=== PATIENT | male | born 1960 | race African-American/Black ===

== ENCOUNTER 2017-04-10 14:14 | Inpatient (IN) | payer OTHER ==
--- NOTE | ~2017-04-10 | CR63 ---
[facility] A Service of [facility] RADIOLOGY TEXT RESULTS PATIENT: GLENDA BRYANT LOCATION: [facility] [id number] : [birth year] UNIT #: [id number] AGE: [address]: Dariel Goodson MD SEX: M ORDER DR: [id number] [facility] [address] [place], [place] [address] [id number] E MR#: [id number] Acc #: [id number] NAME: GLENDA BRYANT : 1960 SEX: M STUDY DATE/TIME: 04/10/2017 16:31 UNIT: DANA ROOM: STUDY DESCRIPTION: CR Chest 2 View Attending Physician: Mckayla Baugh M.D. Ordering Physician: Mckayla Baugh M.D. Primary Care Physician: No Primary Care Physician MEDICAL IMAGING REPORT This report is preliminary unless electronic signature is present EXAM PA and lateral chest. HISTORY Cough and shortness of air and chest pain for 3 days. FINDINGS Two views of the chest demonstrate mild patchy infiltrate in the inferior left lower lobe. This is nonspecific but pneumonia is not excluded and short-term followup chest x-ray is recommended. Remainder of the lungs are clear. No pleural effusions. The cardiac size and pulmonary vascularity are normal. Dictated by... Gonzalez Duffy M.D. THIS IS AN ELECTRONICALLY VERIFIED REPORT Gonzalez Duffy M.D. at 04/10/2017 11:11 PM BRYAN/handy TD: 04/10/2017 20:20 JOB #: [id number] MEDICAL IMAGING REPORT Page 1 of 1 COPY
--- NOTE | ~2017-04-10 | DS ---
Unit #: [id number] #: [id number] Patient: GLENDA BRYANT [id number] [place], [place] [address] [id number] I MR#: [id number] NAME: GLENDA BRYANT ROOM: 560 Age: 56 Sex: M Admission Date: 04/10/2017 : 1960 Discharge Date: 04/13/2017 Attending Physician: Attila Xiong M.D. Primary Care Physician: No Primary Care Physician DISCHARGE SUMMARY DIAGNOSIS ON ADMISSION Hyponatremia. DIAGNOSES ON DISCHARGE 1. Hyponatremia, improved. 2. Legionella pneumonia. 3. Type 2 diabetes mellitus. 4. History of renal stones. CONSULTATION Dr. Noonan in pulmonary consultation. DIAGNOSTIC STUDIES LABORATORY: Patient's creatinine is 0.8, sodium 132, potassium 4.8. AST 92, ALT 93. WBC 7.9, hemoglobin 14.6, platelet count 314,000. Patient's urine for legionella antigen was positive. TSH was 2.06. Hemoglobin A1c was 7.5. Procalcitonin was 0.76. Urine tox screen was positive for marijuana, benzodiazepines, and tricyclic antidepressant. IMAGING: CT scan of head did not reveal any acute intracranial abnormality. HOSPITAL COURSE A 56-year-old male was admitted to [facility] with hyponatremia. Details are as per admission H and P. Patient was seen by Dr. Noonan in consultation. Left lower lobe pneumonia: Patient's urine for antigen for legionella is positive. Patient was treated with antibiotics and is feeling much better now. Hyponatremia: It is likely secondary to alcohol abuse. Patient's sodium level is 132 now. It was 120 on admission. Polysubstance abuse: Patient was advised to follow up with [facility]. Today patient is comfortable, is not in any acute distress. Anxiously wants to go home. PHYSICAL EXAMINATION VITAL SIGNS: Patient's temperature is 98.8, pulse is 83 per minute, respiratory rate is 16 per minute, blood pressure is 172/94. HEENT: Revealed no conjunctival congestion. Sclerae nonicteric. NECK: Supple. Trachea is central. Unit #: [id number] #: [id number] Patient: GLENDA BRYANT RESPIRATORY: Revealed breath sounds equal bilaterally. No wheezes or crackles. HEART: Regular rate and rhythm. S1, S2. ABDOMEN: Soft, nontender. Bowel sounds are present in all four quadrants. NEUROLOGIC: The patient is alert to person, place, and time. Power is 5/5 bilaterally. Sensations are grossly intact. SKIN: Warm and dry. RECOMMENDATIONS ON DISCHARGE Condition is stable. Activity is as tolerated. MEDICATIONS 1. Levaquin 750 mg p.o. daily for 10 days. 2. Metformin 1000 mg p.o. b.i.d. Restart in three days. 3. Patient stated he was taking glyburide at home. He was advised to continue that dose. FOLLOWUP Patient is advised to follow up with primary care physician in one week and followup with Dr. Noonan as recommended. The plan was discussed in detail with patient who showed complete understanding. He is also advised to follow up with [facility]. The patient is advised to have a CBC and CMP done with primary care physician in one week with followup on LFTs. He was also provided smoking cessation education. Dictated by... Michelle House/tommy TD: 04/13/2017 16:52 JOB #: [id number] DISCHARGE SUMMARY Page 1 of 1 X Attila Xiong MD X DISCHARGE SUMMARY
--- NOTE | ~2017-04-10 | CO ---
Unit #: [id number] #: [id number] Patient: GLENDA BRYANT [id number] [address] [id number] I MR#: [id number] NAME: GLENDA BRYANT ROOM: 560 Age: 56 Sex: M Admission Date: 04/10/2017 : 1960 Attending Physician: Dariel Goodson M.D. Primary Care Physician: No Primary Care Physician CONSULTATION REPORT REASON FOR CONSULTATION Pneumonia. CHIEF COMPLAINT Not feeling well. 56-year-old male with a past medical history of diabetes, likely obstructive sleep apnea, alcohol abuse, smoker of half pack per day, presents with complaint of dry cough and not feeling well. Was diagnosed with pneumonia. I am seeing him at the bedside. He denies any headache. No back pain, no chest pain. PHYSICAL EXAMINATION VITAL SIGNS: Temperature 98, pulse 87, respirations 12, blood pressure is 123/75. NEUROLOGICAL: Awake, alert, oriented. No neuro deficit. HEENT: PERRLA. NECK: Supple. No JVD. CHEST: Bilateral air entry, bilateral mild rhonchi. GI: Nontender, soft. Bowel sounds positive. EXTREMITIES: No edema. SKIN: No rashes, no ulcers. LYMPHATIC: No lymphadenopathy. PAST MEDICAL HISTORY 1. Diabetes. 2. Chronic kidney stones. PAST SURGICAL HISTORY 1. Vasectomy. 2. Lithotripsy. SOCIAL HISTORY Positive for alcohol and smokes about one pack per day. FAMILY HISTORY None as per record. ALLERGIES No known drug allergies. DIAGNOSTIC STUDIES Unit #: [id number] #: [id number] Patient: GLENDA BRYANT Labs and imaging reviewed. ASSESSMENT AND PLAN 1. Left lower lobe pneumonia. 2. Hypernatremia. 3. Diabetes mellitus. 4. Likely obstructive sleep apnea. Continue patient on IV antibiotics. Get procalcitonin and urine for legionella and pneumococcal antigen. GI and DVT prophylaxis. The patient will be closely monitored. Will need a repeat CT chest in four weeks to document resolution. Will need outpatient sleep study as well. Thank you very much for this consultation. Dictated by... Michelle Banda TD: 04/11/2017 15:51 JOB #: [id number] CONSULTATION REPORT Page 1 of 1 X Machelle Noonan MD CONSULTATION REPORT
--- NOTE | ~2017-04-10 | CT57 ---
[facility] A Service of [facility] RADIOLOGY TEXT RESULTS PATIENT: GLENDA BRYANT LOCATION: [facility] 560-01 : [birth year] UNIT #: [id number] AGE: [address]: Dariel Goodson MD SEX: M ORDER DR: [id number] [facility] [address] [place], [place] [address] [id number] I MR#: [id number] Acc #: [id number] NAME: GLENDA BRYANT : 1960 SEX: M STUDY DATE/TIME: 04/10/2017 21:14 UNIT: [facility] ROOM: [facility] STUDY DESCRIPTION: CT Chest Wo Cont Attending Physician: Dariel Goodson M.D. Ordering Physician: Angus Kang M.D. Primary Care Physician: No Primary Care Physician MEDICAL IMAGING REPORT This report is preliminary unless electronic signature is present EXAM CT chest without contrast. HISTORY Generalized weakness and cough for 10 days. Left lower lobe infiltrate on chest x-ray yesterday. TECHNIQUE This CT exam was performed with one or more of the following radiation dose reduction techniques: automatic exposure control, adjustment of mA and/or kV according to patient size, and iterative reconstruction. FINDINGS CT chest without contrast demonstrates moderately extensive diffuse patchy airspace infiltrate in the left lower lobe, corresponding to infiltrate on chest x-ray earlier today. Although, nonspecific this could be due to pneumonia and correlation to the patient's history and symptoms is recommended and follow-up chest x-ray is suggested after assessment and treatment. No additional infiltrates. No effusions. No adenopathy. Normal caliber thoracic aorta. IMPRESSION 1. Moderately extensive diffuse airspace infiltrate in the left lower lobe corresponds to a similar finding on chest x-ray earlier today. Although, nonspecific, this could be due to pneumonia. 2. The remainder of the CT chest is negative. 3. Suggest short-term follow-up chest x-ray after appropriate assessment and treatment. Dictated by... Gonzalez Duffy M.D. [facility] A Service [facility] RADIOLOGY TEXT RESULTS PATIENT: GLENDA BRYANT LOCATION: B 560-01 : [birth year] UNIT #: [id number] AGE: [address]: Dariel Goodson MD SEX: M ORDER DR: THIS IS AN ELECTRONICALLY VERIFIED REPORT Gonzalez Duffy M.D. at 04/11/2017 11:47 AM BRYAN/handy TD: 04/11/2017 00:24 JOB #: [id number] MEDICAL IMAGING REPORT Page 1 of 1 COPY
--- NOTE | ~2017-04-10 | CT71 ---
[facility] A Service [facility] RADIOLOGY TEXT RESULTS PATIENT: GLENDA BRYANT LOCATION: [facility] : [birth year] UNIT #: [id number] AGE: [address]: Mckayla Baugh MD SEX: M ORDER DR: [id number] [facility]. [place], [place] [address] [id number] E MR#: [id number] Acc #: [id number] NAME: GLENDA BRYANT : 1960 SEX: M STUDY DATE/TIME: 04/10/2017 16:10 UNIT: [facility] ROOM: STUDY DESCRIPTION: CT Head Wo Contrast Attending Physician: Mckayla Baugh M.D. Ordering Physician: Mckayla Baugh M.D. MEDICAL IMAGING REPORT This report is preliminary unless electronic signature is present EXAM Head CT without HISTORY Weakness, confusion for 10 days. History of diabetes. TECHNIQUE Routine noncontrast head CT. This CT exam was performed with one or more of the following radiation dose reduction techniques: automatic exposure control, adjustment of mA and/or kV according to patient size, and iterative reconstruction. COMPARISON STUDIES There is no previous. FINDINGS There is no displaced calvarial fracture. The visualized mastoid air cells are clear. The visualized paranasal sinuses are clear. There is no evidence for acute intracranial hemorrhage or extraaxial fluid collection. The ventricles are normal in size and configuration. The marquez-white junction is relatively well-maintained. No acute cortical infarct is suspected. If there is clinical concern, follow-up imaging is recommended, preferably with MRI if the patient is a candidate. No intracranial mass effect. Basilar cisterns patent. IMPRESSION No acute intracranial abnormality but if there is clinical concern for acute CVA, follow-up imaging is recommended, preferably with MRI. Dictated by... Rose Ching M.D. [facility] A Service [facility] RADIOLOGY TEXT RESULTS PATIENT: GLENDA BRYANT LOCATION: [facility] : [birth year] UNIT #: [id number] AGE: [address]: Mckayla Baugh MD SEX: M ORDER DR: THIS IS AN ELECTRONICALLY VERIFIED REPORT Rose Ching M.D. at 04/10/2017 8:27 PM SAC/pcl TD: 04/10/2017 19:33 JOB #: [id number] MEDICAL IMAGING REPORT Page 1 of 1 COPY
--- NOTE | ~2017-04-10 | HP ---
Unit #: [id number] #: [id number] Patient: GLENDA BRYANT [id number] [address] [id number] I MR#: [id number] NAME: GLENDA BRYANT ROOM: 560 Age: 56 Sex: M Admission Date: 04/10/2017 : 1960 Attending Physician: Dariel Goodson M.D. Primary Care Physician: No Primary Care Physician HISTORY AND PHYSICAL CHIEF COMPLAINT Not feeling very well for 10 days. HISTORY OF PRESENT ILLNESS This is a 56-year-old gentleman who has a past medical history significant for history of diabetes and history of alcohol use. He presented to the emergency room with a chief complaint of not feeling very well for the past 10 days. He has some dry cough, but no fever, no chills, no nausea or vomiting. He said he just feels that he is not feeling good. He denies any other complaint. No headache. No slurred speech. No weakness. PAST MEDICAL HISTORY 1. History of diabetes. 2. History of kidney stones. PAST SURGICAL HISTORY 1. History of vasectomy. 2. Lithotripsy. SOCIAL HISTORY The patient uses alcohol, one pint of cognac every week. He smokes one pack daily. He denies illicit drug use. FAMILY HISTORY Noncontributory. ALLERGIES No known drug allergies. HOME MEDICATIONS 1. Glucophage 1 g b.i.d. 2. One more diabetic medication that he does not remember the name of. REVIEW OF SYSTEMS Twelve point review of systems negative except as per history of present illness. PHYSICAL EXAMINATION GENERAL: Middle-aged male lying in the bed comfortably. Currently not in any distress. He is alert, awake and oriented times three. VITALS: Currently, temperature 97.9, heart rate 98, respiratory rate 20, blood pressure 123/75. Oxygen saturation 95% on room air. HEENT: Pupils equal and reactive to light and accommodation. Head is normocephalic, atraumatic. Unit #: [id number] #: [id number] Patient: GLENDA BRYANT NECK: Supple. No jugular venous distension. HEART: S1 and S2. Regular rate and rhythm. ABDOMEN: Soft, nontender and nondistended. Bowel sounds positive. EXTREMITIES: Inspection normal. No cyanosis, clubbing or edema. NEUROLOGIC: No focal neurologic deficits. SKIN: No rashes. PSYCHIATRIC: Normal mood and affect. DIAGNOSTIC STUDIES IMAGING: CT head is negative. Chest x-ray shows inferior lower lobe infiltrate. LABORATORY: INR 1.1, CBC with white blood cell count 9, hemoglobin 15, hematocrit 44, platelets 245. Sodium 120, potassium 3.6, chloride 89, glucose 306, BUN 25, creatinine 0.9. LFTs, AST 117, ALT 105. Glucose 275. INR 0.05. ASSESSMENT/PLAN 1. Hyponatremia. Start the patient on IV fluids, normal saline. Check TSH, 2. Questionable inferior left lower lobe infiltrate on chest x-ray. Will get CT chest without contrast. Start on IV antibiotics, Rocephin and Zithromax. 3. History of abnormal LFTs and history of alcohol use. Most likely secondary to alcoholic liver disease. Will recheck the hepatitis profile. 4. Diabetes. Hold Metformin. Place on sliding scale. 5. History of kidney stone. 6. Tobacco abuse. DVT prophylaxis. Will place the patient on Lovenox. Dictated by Michelle Nuñez TD: 04/11/2017 08:43 JOB #: [id number] HISTORY AND PHYSICAL Page 1 of 1 X X HISTORY AND PHYSICAL
--- NOTE | ~2017-04-10 | EKG ---
PATIENT: GLENDA BRYANT UNIT #: [id number] Ventricular Rate: 91 BPM Atrial Rate: 91 BPM P-R Interval: 190 ms QRS Duration: 82 ms Q-T Interval: 372 ms QTC Calculation(Bezet): 457 ms P Grulla: 60 degrees Calculated R Grulla: 50 degrees Calculated T Grulla: 53 degrees Diagnosis Line: Normal sinus rhythm Diagnosis Line: Septal infarct , age undetermined Diagnosis Line: Abnormal ECG Diagnosis Line: No previous ECGs available Diagnosis Line: Confirmed by OSCAR LUNA MD ([id number]) on 04/12/2017 Diagnosis Line: 4:28:06 PM INTERPRETING MD: CHERYL CHAVEZ
[~2017-04-10 14:14] MED LIST: GLUCOPHAGE XR500 MG; UNKNOWN DIABETIC MED; ZOLOFT
[2017-04-10] MEDS ORDERED: METFORMIN PO (14:33)
[2017-04-10 16:35] LABS: BASOPHIL# 0.1 X10e3 (0-0.3); EOSINOPHIL# 0.1 X10e3 (0-0.7); EOSINOPHIL% 0.6 % (0.0-7.0); HEMATOCRIT 44.3 % (38.0-50.0); HEMOGLOBIN 15.3 gm/dL (13.0-16.0); LYMPHOCYTE# 1.5 X10e3 (1.0-3.5); LYMPHOCYTE% 16.5 % (17.0-45.0); MEAN CORPUSCULAR HEMOGLOBIN 32.8 PG (28-34); MEAN CORPUSCULAR HGB CONC 34.5 g/dL (30-36); MEAN PLATELET VOLUME 10.6 FL (6.5-11.5); MONOCYTE% 11.4 % (3.0-12.0); NEUTROPHIL# 6.4 X10e3 (1.5-7.1); NEUTROPHIL% 70.5 % (40-75); PLATELET COUNT 245 X10e3 (140-420); RED BLOOD COUNT 4.66 X10e (3.90-5.60); RED CELL DISTRIBUTION WIDTH 12.8 % (11.0-15.5); WHITE BLOOD COUNT 9.1 X10e3 (4.0-10.5)
[2017-04-10 16:41] LABS: INR 1.1; PROTHROMBIN TIME (PATIENT) 11.4 SECONDS (9.6-11.5)
[2017-04-10 16:46] LABS: DIFF IND NO
[2017-04-10 16:58] LABS: BILIRUBIN, DIRECT 0.3 mg/dL (0.0-0.2); BILIRUBIN,INDIRECT 0.6 mg/dL (0.0-0.9); BILIRUBIN,TOTAL 0.9 mg/dL (0.2-2.0); BUN/CREATININE RATIO 26.66; CALCIUM SERUM 7.9 mg/dL (8.4-10.2); CREATININE SERUM 0.9 mg/dL (0.6-1.4); GLOM FILT RATE Estimated 111.8 mL/min (>60); POTASSIUM 3.6 mmol/L (3.5-5.1); PROTEIN TOTAL SERUM 7.7 g/dL (6.0-8.3)
[2017-04-10 18:36] LABS: POC - CKMB 2.2 ng/mL (0.0-7.9); POC - TROPONIN <0.05 ng/mL (<=0.05)
[2017-04-10 21:33] LABS: URINE SOURCE CLEAN CATCH
[2017-04-10 21:40] LABS: URINE APPEARANCE CLEAR; URINE BILIRUBIN NEG (NEG); URINE BLOOD NEG (NEG); URINE COLOR DK YELLOW; URINE GLUCOSE 500 MG/DL (NEG); URINE KETONE NEG (NEG); URINE LEUKOCYTE ESTERASE NEG (NEG); URINE NITRATE NEG (NEG); URINE PROTEIN 1+ (NEG); URINE SPECIFIC GRAVITY 1.021 (1.003-1.035)
[2017-04-10 21:42] LABS: URBCS1 AUWI 0-2 /[HPF] (0-2); URINE BACTERIA AUWI NEG (NEGATIVE); URINE SQUAMOUS EPITHELIAL CELL NONE SEEN /[HPF]
[2017-04-10 21:46] LABS: CULTURE INDICATED? NO
[2017-04-10 21:51] LABS: AMPHETAMINE NEG (NEG); BARBITURATES NEG (NEG); BENZODIAZEPINES POS (NEG); COCAINE NEG (NEG); MARIJUANA POS (NEG); OPIATES NEG (NEG); TRICYCLIC ANTIDEPRESSANTS POS (NEG); U METHADONE NEG (NEG)
[2017-04-11 07:25] LABS: BASOPHIL# 0.1 X10e3 (0-0.3); BASOPHIL% 1.2 % (0-2.5); EOSINOPHIL# 0.1 X10e3 (0-0.7); EOSINOPHIL% 1.2 % (0.0-7.0); HEMATOCRIT 42.7 % (38.0-50.0); HEMOGLOBIN 14.6 gm/dL (13.0-16.0); LYMPHOCYTE# 1.6 X10e3 (1.0-3.5); LYMPHOCYTE% 20.3 % (17.0-45.0); MEAN CELL VOLUME 95.5 FL (83-96); MEAN CORPUSCULAR HEMOGLOBIN 32.7 PG (28-34); MEAN CORPUSCULAR HGB CONC 34.3 g/dL (30-36); MEAN PLATELET VOLUME 10.3 FL (6.5-11.5); MONOCYTE# 0.6 X10e3 (0-1.0); MONOCYTE% 8.2 % (3.0-12.0); NEUTROPHIL# 5.4 X10e3 (1.5-7.1); NEUTROPHIL% 69.1 % (40-75); PLATELET COUNT 244 X10e3 (140-420); RED BLOOD COUNT 4.47 X10e (3.90-5.60); RED CELL DISTRIBUTION WIDTH 12.6 % (11.0-15.5); WHITE BLOOD COUNT 7.9 X10e3 (4.0-10.5)
[2017-04-11 07:39] LABS: DIFF IND NO
[2017-04-11 07:58] LABS: ALBUMIN SERUM 2.9 g/dL (3.5-5.0); BILIRUBIN,TOTAL 1.1 mg/dL (0.2-2.0); CALCIUM SERUM 7.7 mg/dL (8.4-10.2); CREATININE SERUM 0.7 mg/dL (0.6-1.4); GLOM FILT RATE Estimated 124.1 mL/min (>60); POTASSIUM 3.8 mmol/L (3.5-5.1); PROTEIN TOTAL SERUM 7.4 g/dL (6.0-8.3)
[2017-04-12 08:30] LABS: BUN/CREATININE RATIO 12.85; CALCIUM SERUM 7.7 mg/dL (8.4-10.2); CREATININE SERUM 0.7 mg/dL (0.6-1.4); GLOM FILT RATE Estimated 124.1 mL/min (>60); POTASSIUM 4.2 mmol/L (3.5-5.1)
[2017-04-12 12:15] LABS: LEGIONELLA AG URINE POS (NEG)
[2017-04-13 06:39] LABS: HEMATOCRIT 42.9 % (38.0-50.0); HEMOGLOBIN 14.6 gm/dL (13.0-16.0); MEAN CELL VOLUME 95.7 FL (83-96); MEAN CORPUSCULAR HEMOGLOBIN 32.6 PG (28-34); MEAN PLATELET VOLUME 9.2 FL (6.5-11.5); RED BLOOD COUNT 4.48 X10e (3.90-5.60); RED CELL DISTRIBUTION WIDTH 12.7 % (11.0-15.5); WHITE BLOOD COUNT 7.9 X10e3 (4.0-10.5)
[2017-04-13 07:24] LABS: CALCIUM SERUM 8.3 mg/dL (8.4-10.2); CREATININE SERUM 0.8 mg/dL (0.6-1.4); GLOM FILT RATE Estimated 117.4 mL/min (>60); POTASSIUM 4.8 mmol/L (3.5-5.1)
[2017-04-13] MEDS ORDERED: LEVAQUIN750 MG PO (15:21)
[2017-04-16 13:35] LABS: HA AB IGM (HEPPAN) Nonreactive (()); HB CORE AB IGM (HEPPAN) Nonreactive (Nonreactive); HB S AG (HEPPAN) Nonreactive (Nonreactive); HEP C AB (HEPPAN) Reactive (Nonreactive)
== END 2017-04-13 14:00 | disposition home or self-care (01) | DRG 178 ==
LOC: CED 14:14 → CEDOF 20:30 → CED 20:30 → C5B 20:30 → CEDOF 23:28 → C5B 04-12 05:42
PROVIDERS: Emergency Medicine; Internal Medicine
DX: A48.1 Legionnaires' disease (principal); E87.1 Hypo-osmolality and hyponatremia; F17.210 Nicotine dependence, cigarettes, uncomplicated; E11.9 Type 2 diabetes mellitus without complications; Z79.84 Long term (current) use of oral hypoglycemic drugs; F10.10 Alcohol abuse, uncomplicated; F19.10 Other psychoactive substance abuse, uncomplicated; G47.33 Obstructive sleep apnea (adult) (pediatric); Z98.52 Vasectomy status; Z87.442 Personal history of urinary calculi
CPT/HCPCS: 36415; 70450; 71020; 71250; 80048; 80053; 80074; 80076; 80307; 81003; 82308; 82553; 82947; 83036; 84443; 84484; 85025; 85027; 85610; 87449; 87522; 87899; 93005; 94640; 94760; 96361; 96365; 96375; 99285; J0456; J0696; J1650; J1815